=== PATIENT | female | born 1975 | race Caucasian/White ===

== ENCOUNTER → 2016-07-01 | Outpatient (CLI) | payer OTHER ==
--- NOTE | 2016-07-01 10:33 | CT ---
EXAMINATION TYPE: CT brain wo con DATE OF EXAM: 07/01/2016 10:18 AM COMPARISON: Prior CT brain April 23, 2006. HISTORY: New onset headache for one week. CT DLP: 1070 mGycm. Automated Exposure Control for Dose Reduction was Utilized. TECHNIQUE: CT scan of the head is performed without contrast. FINDINGS: There is no acute intracranial hemorrhage, mass effect, or midline shift identified. The ventricles and sulci are within normal limits in size. Francis-white matter differentiation is maintai maranda. The globes are intact and the visualized sinuses are clear. IMPRESSION: No acute intracranial hemorrhage or midline shift is seen. Unremarkable study.
== END | disposition home or self-care (01) ==
LOC: RADCTMAIN 09:26
PROVIDERS: ATTEND Family Medicine
DX: R51 Headache (principal)
CPT/HCPCS: 70450

== ENCOUNTER → 2016-10-16 | Outpatient (CLI) | payer OTHER ==
[2016-10-16 11:36] LABS: Basophils % (A) 1 %; CH 29.8; CHCM 32.4; Eosinophils # (A) 0.2 k/uL (0-0.7); Eosinophils % (A) 4 %; HCT 39.1 % (34.0-46.0); HDW 2.67; Luc # (Auto) 0.05; Luc % (Auto) 1; Lymphocytes # (A) 1.6 k/uL (1.0-4.8); Lymphocytes % (A) 30 %; MCH 30.8 pg (25.0-35.0); MCHC 33.3 g/dL (31.0-37.0); MCV 92.6 fL (80.0-100.0); Mean Platelet Volume 7.4; Monocytes # (A) 0.2 k/uL (0-1.0); Monocytes % (A) 4 %; Neutrophils # (A) 3.2 k/uL (1.3-7.7); Neutrophils % (A) 61 %; RBC 4.22 m/uL (3.80-5.40); RDW 13.7 % (11.5-15.5); WBC 5.3 k/uL (3.8-10.6); WBC (Perox) 5.46
[2016-10-16 12:23] LABS: ALT 39 U/L (9-52); AST 22 U/L (14-36); Alkaline Phosphatase 84 U/L (38-126); Anion Gap 11 mmol/L; Blood Urea Nitrogen 10 mg/dL (7-17); Calcium 9.7 mg/dL (8.4-10.2); Carbon Dioxide 24 mmol/L (22-30); Chloride 107 mmol/L (98-107); Creatine Kinase 47 U/L (30-135); Glucose 91 mg/dL (74-99); Non-African American GFR(MDRD) >60 (>60 ml/min/1.73 sqM); Potassium 4.3 mmol/L (3.5-5.1); Sodium 142 mmol/L (137-145); Total Bilirubin 0.2 mg/dL (0.2-1.3)
[2016-10-16 12:26] LABS: Rheumatoid Factor, Qnt <9 IU/mL (<12)
[2016-10-16 13:12] LABS: Vitamin B12 430 pg/mL (239-931)
[2016-10-16 13:39] LABS: Erythrocyte Sedimentation Rate 14 mm/hr (0-20)
[2016-10-16 18:20] LABS: ANA w/Reflex to Titer NEGATIVE (NEGATIVE)
[2016-10-17 08:18] LABS: Lyme IgG/IgM 0.1 Index; Lyme IgG/IgM Interp NEGATIVE (NEGATIVE)
== END ==
LOC: LABWHC1 11:18
PROVIDERS: ATTEND Psychiatry & Neurology Neurology
DX: M79.1 Myalgia (principal); G43.909 Migraine, unspecified, not intractable, without status migrainosus; R51 Headache; Z79.899 Other long term (current) drug therapy
CPT/HCPCS: 36415; 80053; 82306; 82550; 82607; 84439; 84443; 85025; 85652; 86038; 86431; 86618

== ENCOUNTER → 2018-02-11 | Outpatient (CLI) | payer BC ==
--- NOTE | 2018-02-11 14:24 | MM ---
Reason for exam: screening (asymptomatic). Baseline mammogram. History: Took hormonal contraceptives beginning at age 17. Physical Findings: Nurse did not find any significant physical abnormalities on exam. MG Screening Mammo w CAD Bilateral CC and MLO view(s) were taken. The breast tissue is heterogeneously dense. This may lower the sensitivity of mammography. Focal asymmetry right upper outer quadrant. These results were verbally communicated with the patient and result sheet given to the patient on 02/11/18. ASSESSMENT: Benign, BI-RAD 2 RECOMMENDATION: Routine screening mammogram of both breasts in 1 year.
== END | disposition home or self-care (01) ==
LOC: RADMAMWWP 13:28
PROVIDERS: ATTEND Family Medicine
DX: Z12.31 Encounter for screening mammogram for malignant neoplasm of breast (principal)
CPT/HCPCS: 77067

== ENCOUNTER 2019-01-25 12:07 | Emergency (ER) | payer BC ==
[2019-01-25 12:14] VITALS: BP 123/84; PULSE 82; RESP 18; TEMP 97.3
[2019-01-25] MEDS ORDERED: HYDROcodone/APAP 5-325MG 1 EACH TAB PO STA (12:30)
--- NOTE | 2019-01-25 12:36 | ED ---
Fall HPI - General Chief Complaint: Fall Stated Complaint: fall/rib pain Time Seen by Provider: 01/25/19 12:15 Source: patient, RN notes reviewed Mode of arrival: ambulatory Limitations: no limitations - History of Present Illness Initial Comments: This a 43-year-old female presents emergency Department chief complaint of left- sided rib pain. Patient states that she tripped and fell on Wednesday. Patient states she was walking her dog into her house states that she tripped on status. Patient landed forward on her left rib region. Patient was sent from PCPs office for x-rays. Patient states that she has pain with deep inspiration, movement, does feel short of breath secondary to pain no resting shortness of breath. No abdominal pain no head injury no loss conscious. - Related Data Home Medications Medication Instructions Recorded Confirmed Biotin 5 mg PO DAILY 01/25/19 01/25/19 Cholecalciferol (Vitamin D3) 2,000 unit PO DAILY 01/25/19 01/25/19 [Vitamin D3] Cider Vinegar [Apple Cider Vinegar] 600 mg PO DAILY 01/25/19 01/25/19 DULoxetine HCL [Cymbalta] 60 mg PO BID 01/25/19 01/25/19 Magnesium(Unknown Dose) 1 tab PO DAILY 01/25/19 01/25/19 Topiramate [Topamax] 25 mg PO BID 01/25/19 01/25/19 Vitamin B Complex 1 cap PO DAILY 01/25/19 01/25/19 Previous Rx's Medication Instructions Recorded Hydrocodone/Acetaminophen [[place] 1 tab PO Q6HR PRN #12 tab 01/25/19 5-325] Allergies Allergy/AdvReac Type Severity Reaction Status Date / Time No Known Allergies Allergy Verified 01/25/19 12:38 Review of Systems ROS Statement: Those systems with pertinent positive or pertinent negative responses have been documented in the HPI. ROS Other: All systems not noted in ROS Statement are negative. Past Medical History Past Medical History: Fibromyalgia History of Any Multi-Drug Resistant Organisms: None Reported Past Surgical History: Tonsillectomy, Tubal Ligation Additional Past Surgical History / Comment(s): uterine ablation Past Psychological History: No Psychological Hx Reported Smoking Status: Current every day smoker Past Alcohol Use History: Occasional Past Drug Use History: Marijuana General Exam Limitations: no limitations General appearance: alert, in no apparent distress Head exam: Present: atraumatic, normocephalic, normal inspection ENT exam: Present: normal exam, mucous membranes moist Neck exam: Present: normal inspection, full ROM. Absent: tenderness, meningismus, lymphadenopathy Respiratory exam: Present: normal lung sounds bilaterally, chest wall tenderness (Moderate left-sided rib tenderness anterior to lateral). Absent: respiratory distress, wheezes, rales, rhonchi, stridor, accessory muscle use Cardiovascular Exam: Present: regular rate, normal rhythm, normal heart sounds. Absent: systolic murmur, diastolic murmur, rubs, gallop, clicks GI/Abdominal exam: Present: soft, normal bowel sounds. Absent: distended, tenderness, guarding, rebound, rigid Back exam: Present: full ROM. Absent: tenderness, paraspinal tenderness, vertebral tenderness Neurological exam: Present: alert, oriented X3, CN II-XII intact, reflexes normal. Absent: motor sensory deficit Skin exam: Present: warm, dry, intact, normal color. Absent: rash Course Vital Signs 01/25/19 12:08 Temperature 97.3 F L Pulse Rate 82 Respiratory 18 Rate Blood Pressure 123/84 O2 Sat by Pulse 100 Oximetry Medical Decision Making - Medical Decision Making X-rays of the ribs and chest were obtained and reviewed no acute fracture or pneumothorax. Patient we discharged with rib contusion with pain medication return parameters discussed. Disposition Clinical Impression: Fall, Contusion of rib on left side Disposition: HOME SELF-CARE Condition: Stable Instructions (If sedation given, give patient instructions): Rib Contusion (ED) Additional Instructions: Please return to the Emergency Department if symptoms worsen or any other concerns. Prescriptions: Hydrocodone/Acetaminophen [[place] 5-325] 1 tab PO Q6HR PRN #12 tab PRN Reason: Pain Is patient prescribed a controlled substance at d/c from ED?: Yes When asked, does pt state using other controlled substances?: Yes If prescribed controlled substance>3 days was MAPS reviewed?: Prescribed <3 Days If opioid is for acute pain is fill amount 7 days or less?: Yes If Rx opioid, was Start Talking consent form obtained?: Yes Referrals: Nikko Hodge MD [Primary Care Provider] - 1-2 days Time of Disposition: 13:19
--- NOTE | 2019-01-25 13:03 | XR ---
EXAMINATION TYPE: XR ribs LT w pa chest xray DATE OF EXAM: 01/25/2019 COMPARISON: None HISTORY: Slipped on stairs striking left side on steps TECHNIQUE: Chest is examined in the frontal projection. Left ribs are examined in 2 views each. FINDINGS: Heart size is normal. Pulmonary vasculature is normal. No pneumothorax is evident. Left ribs appear intact. No displaced rib fractures are evident. Note is made of some mild scoliosis in the upper lumbar spine. IMPRESSION: 1. No acute left rib fractures. 2. Normal chest
== END 2019-01-25 13:25 | disposition home or self-care (01) ==
LOC: EC 12:07
DX: S20.212A Contusion of left front wall of thorax, initial encounter (principal); M79.7 Fibromyalgia; F17.200 Nicotine dependence, unspecified, uncomplicated; Z79.899 Other long term (current) drug therapy; W10.9XXA Fall (on) (from) unspecified stairs and steps, initial encounter; Y93.K1 Activity, walking an animal; Y92.009 Unspecified place in unspecified non-institutional (private) residence as the place of occurrence of the external cause
CPT/HCPCS: 99283

== ENCOUNTER 2020-03-13 07:46 | Day surgery (SDC) | payer BC ==
[2020-03-05 15:51] VITALS: BMI 25.4
[~2020-03-13 07:46] MED LIST: LACTATED RINGERS 1,000 ML IV SCH
[2020-03-13 08:10] VITALS: TEMP 97.8
[2020-03-13] MEDS ORDERED: LACTATED RINGERS 1,000 ML IV ONE (08:11)
[2020-03-13] MEDS ORDERED: LIDOCAINE 1% (10MG/ML) FOR IV START INTRADERMA ONE (08:12)
[2020-03-13] MEDS ORDERED: PROPOFOL 10 MG/ML 20 ML VIAL IV ONE (08:49)
--- NOTE | 2020-03-13 08:59 | P.GSHP ---
History of Present Illness H&P Date: 03/13/20 CHIEF COMPLAINT: Colon screen HISTORY OF PRESENT ILLNESS: The patient is a 44-year-old female who presents for colon screen. Lower endoscopy was offered for further evaluation and management. PAST MEDICAL HISTORY: Please see list. PAST SURGICAL HISTORY: Please see list. MEDICATIONS: Please see list. ALLERGIES: Please see list. SOCIAL HISTORY: No illicit drug use FAMILY HISTORY: No reports of Crohn disease or ulcerative colitis. REVIEW OF ORGAN SYSTEMS: CONSTITUTIONAL: No reports of fevers or chills. PHYSICAL EXAM: VITAL SIGNS: Stable GENERAL: Well-developed pleasant in no acute distress. HEENT: No scleral icterus. Extraocular movements grossly intact. Moist buccal mucosa. NECK: Supple without lymphadenopathy. CHEST: Unlabored respirations. Equal bilateral excursions. CARDIOVASCULAR: Regular rate and rhythm. Distal 2+ pulses. ABDOMEN: Soft, nontender, nondistended. MUSCULOSKELETAL: No clubbing, cyanosis, or edema. ASSESSMENT: 1. Colon screen. PLAN: 1. Recommend proceeding with a lower endoscopy Past Medical History Past Medical History: Fibromyalgia Additional Past Medical History / Comment(s): migraines. scarlet fever History of Any Multi-Drug Resistant Organisms: None Reported Past Surgical History: Tonsillectomy, Tubal Ligation, Uterine Ablation Additional Past Surgical History / Comment(s): uterine ablation Additional Past Anesthesia/Blood Transfusion Reaction / Comment(s): "anesthesia caused constipation" Smoking Status: Current every day smoker - Past Family History Father Family Medical History: Cancer Additional Family Medical History / Comment(s): colon cancer. pat. gpa-colon cancer Medications and Allergies Home Medications Medication Instructions Recorded Confirmed Type Biotin 10 mg PO DAILY 01/25/19 03/05/20 History Cholecalciferol (Vitamin D3) 2,000 unit PO DAILY 01/25/19 03/05/20 History [Vitamin D3] Cider Vinegar [Apple Cider Vinegar] 600 mg PO DAILY 01/25/19 03/05/20 History DULoxetine HCL [Cymbalta] 60 mg PO BID 01/25/19 03/05/20 History Topiramate [Topamax] 50 mg PO BID 01/25/19 03/05/20 History Butalb/Acetaminophen/Caffeine 1 cap PO DAILY PRN 03/05/20 03/05/20 History [Fioricet 50-300-40 mg Capsule] Diazepam [Valium] 10 mg PO DAILY PRN 03/05/20 03/05/20 History Allergies Allergy/AdvReac Type Severity Reaction Status Date / Time No Known Allergies Allergy Verified 03/05/20 15:41 Surgical - Exam Vital Signs Temp Pulse Resp BP Pulse Ox 97.8 F 73 18 140/78 100 03/13/20 08:09 03/13/20 08:09 03/13/20 08:09 03/13/20 08:09 03/13/20 08:09
--- NOTE | 2020-03-13 09:22 | P.PCN ---
Date of Procedure: 03/13/20 Description of Procedure: PREOPERATIVE DIAGNOSIS: Family history malignant colon polyps, father, grandfather Colonoscopy screening, high risk POSTOPERATIVE DIAGNOSIS: Tubular adenoma descending colon Internal hemorrhoids, grade 2 External hemorrhoids, grade 2 OPERATION: Colonoscopy to the ileocecal valve and appendiceal orifice, cecum Colonoscopy with multiple hot snare polypectomy SURGEON: Tanvi Nowak MD. ANESTHESIA: MAC. INDICATIONS: The patient is an 44-year-old female who presents family history of malignant colon polyps. His first colonoscopy. Benefits and risks were described and informed consent was obtained. DESCRIPTION OF PROCEDURE: The patient had undergone Suprep. She had been brought into the operating room and laid in the left lateral decubitus position. After adequate intravenous sedation, the rectum was examined with 2% lidocaine jelly. External hemorrhoids were encountered. The rectal tone was within normal limits. No lesions were palpated in the rectal vault. An Olympus colonoscope was advanced until the cecum, ileocecal valve and appendiceal orifice were clearly viewed. The prep was excellent. No sigmoid diverticulosis was encountered. Large colonic adenoma was found and removed with snare polypectomy. No evidence of focal colitis was found. Retroflexion of the scope demonstrated grade 2 internal hemorrhoids without active bleeding or inflammation. The colon was desufflated. The patient had tolerated the procedure well. Withdrawal time was over 6 minutes. FINDINGS: Aronchick preparation quality scale 1 (1-5) Internal hemorrhoids, grade 2 External hemorrhoids, grade 2 No arteriovenous malformations. No sigmoid diverticulosis Removal of 1 polyp: - Snare polypectomy 35 cm from the anal verge, 12 mm tubulovillous adenoma polyp No focal colitis. RECOMMENDATIONS: Repeat colonoscopy 3 years, 2022 Plan - Discharge Summary Discharge Rx Participant: No New Discharge Prescriptions: Continue Cider Vinegar [Apple Cider Vinegar] 600 mg PO DAILY Cholecalciferol (Vitamin D3) [Vitamin D3] 2,000 unit PO DAILY Topiramate [Topamax] 50 mg PO BID DULoxetine HCL [Cymbalta] 60 mg PO BID Biotin 10 mg PO DAILY Diazepam [Valium] 10 mg PO DAILY PRN PRN Reason: Anxiety Butalb/Acetaminophen/Caffeine [Fioricet 50-300-40 mg Capsule] 1 cap PO DAILY PRN PRN Reason: migraines Discharge Medication List Biotin 10 mg PO DAILY 01/25/19 [History] Cholecalciferol (Vitamin D3) [Vitamin D3] 2,000 unit PO DAILY 01/25/19 [History] Cider Vinegar [Apple Cider Vinegar] 600 mg PO DAILY 01/25/19 [History] DULoxetine HCL [Cymbalta] 60 mg PO BID 01/25/19 [History] Topiramate [Topamax] 50 mg PO BID 01/25/19 [History] Butalb/Acetaminophen/Caffeine [Fioricet 50-300-40 mg Capsule] 1 cap PO DAILY PRN 03/05/20 [History] Diazepam [Valium] 10 mg PO DAILY PRN 03/05/20 [History] Follow up Appointment(s)/Referral(s): Tanvi Nowak MD [STAFF PHYSICIAN] - As Needed Patient Instructions/Handouts: Colorectal Polyps (DC) Activity/Diet/Wound Care/Special Instructions: Repeat colonoscopy in 3 years, 2022 Discharge Disposition: HOME SELF-CARE
[2020-03-13 09:35] VITALS: BP 124/65; PULSE 60; RESP 16
--- NOTE | 2020-03-15 08:16 | CDI ---
Outpatient Documentation Clarification Form Date: 03/15/20 CDS/Adjunct Phlebotomy Instructor Name: Sheyla Anthony Phone: If any questions, call Mena Machuca Fiscal Assistant at [phone] Patient Name: La Escobar Admit Date: 03/13/20 Discharge Date: 03/13/20 ATTENTION: The [facility] Coding Staff appreciate your assistance in clarifying documentation. Please respond to the clarification below the line at the bottom and electronically sign. The [facility] Coding staff will review the response and follow-up if needed. Please note: Queries are made part of the Legal Health Record. If you have any questions, please contact the Fiscal Assistant. Dear Dr. Nowak, Please provide clarification as to the location of the colonic polyp. Please chose one of the options below for the correct location. Site of neoplasm - colon with rectum ascending cecum descending hepatic flexure sigmoid splenic flexure Thank you for your kind consideration. descending KM 03/16/20 0723 MTDD
== END 2020-03-13 09:49 | disposition home or self-care (01) ==
LOC: ORWHC2ENDO 07:46
PROVIDERS: ATTEND Surgery Plastic and Reconstructive Surgery
DX: Z12.11 Encounter for screening for malignant neoplasm of colon (principal); D12.4 Benign neoplasm of descending colon; K64.1 Second degree hemorrhoids; M79.7 Fibromyalgia; G43.909 Migraine, unspecified, not intractable, without status migrainosus; F17.200 Nicotine dependence, unspecified, uncomplicated; Z86.19 Personal history of other infectious and parasitic diseases; Z98.51 Tubal ligation status; Z98.890 Other specified postprocedural states; Z80.0 Family history of malignant neoplasm of digestive organs; Z79.891 Long term (current) use of opiate analgesic; Z79.899 Other long term (current) drug therapy
CPT/HCPCS: 81025; 88305; 45385; J2704

== ENCOUNTER 2021-10-31 13:53 | Emergency (ER) | payer BC ==
[2021-10-31] MEDS ORDERED: ONDANSETRON 4 MG/2 ML VIAL IVP STA (14:25)
[2021-10-31] MEDS ORDERED: SODIUM CHLORIDE 0.9% 2,000 ML IV STA (14:25)
[2021-10-31] MEDS ORDERED: KETOROLAC 15 MG/ML 1 ML VIAL IVP STA (14:25)
[2021-10-31 14:44] VITALS: RESP 18
[2021-10-31 14:54] LABS: Basophils % (A) 0 %; Eosinophils # (A) 0.3 k/uL (0-0.7); Eosinophils % (A) 4 %; HCT 43.9 % (34.0-46.0); HGB 14.6 gm/dL (11.4-16.0); Lymphocytes # (A) 2.4 k/uL (1.0-4.8); Lymphocytes % (A) 30 %; MCHC 33.2 g/dL (31.0-37.0); MCV 93.5 fL (80.0-100.0); Monocytes # (A) 0.3 k/uL (0-1.0); Monocytes % (A) 4 %; Neutrophils % (A) 61 %; Platelet Count 299 k/uL (150-450); RDW 13.4 % (11.5-15.5); WBC 8.2 k/uL (3.8-10.6)
[2021-10-31 15:08] LABS: ALT 44 U/L (4-34); AST 26 U/L (14-36); African American GFR (CKD) >90 (>60 ml/min/1.73 sqM); Alkaline Phosphatase 99 U/L (38-126); Amylase 59 U/L (30-110); Anion Gap 12 mmol/L; Blood Urea Nitrogen 15 mg/dL (7-17); Calcium 10.4 mg/dL (8.4-10.2); Carbon Dioxide 24 mmol/L (22-30); Chloride 99 mmol/L (98-107); Glucose 98 mg/dL (74-99); Lipase 85 U/L (23-300); Non-African American GFR(CKD) 90 (>60 ml/min/1.73 sqM); Potassium 4.2 mmol/L (3.5-5.1); Sodium 135 mmol/L (137-145); Total Bilirubin 0.2 mg/dL (0.2-1.3); Total Protein 7.9 g/dL (6.3-8.2)
--- NOTE | 2021-10-31 15:16 | CT ---
EXAMINATION TYPE: CT abdomen pelvis wo con CT DLP: 804.7 mGycm, Automated exposure control for dose reduction was used. DATE OF EXAM: 10/31/2021 3:01 PM COMPARISON: CT abdomen pelvis most recent from 08/31/2011 . CLINICAL INDICATION:Female, 46 years old with history of right flank pain TECHNIQUE: Standard CT of the abdomen and pelvis without IV or oral contrast. Lack of IV or oral co ntrast limits evaluation of solid and hollow organ viscera. Coronal and sagittal reformats were perfo rmed. FINDINGS: LOWER CHEST: Scarring and/or atelectasis demonstrated within the right middle lobe. ABDOMEN LIVER: Unremarkable noncontrast appearance. GALLBLADDER AND BILE DUCTS: Unremarkable noncontrast appearance. PANCREAS: Unremarkable noncontrast appearance. SPLEEN: Unremarkable noncontrast appearance. ADRENAL GLANDS: Unremarkable noncontrast appearance. KIDNEYS AND URETERS: No evidence of hydronephrosis or renal calculus. No ureteral calculi identified. No perinephric fat stranding or fluid collections. PELVIS BLADDER: Unremarkable REPRODUCTIVE: Unremarkable. ABDOMEN & PELVIS STOMACH AND BOWEL: Stomach and duodenum are unremarkable. No focal thickening or surrounding inflamma tory changes. The appendix is within normal limits. There are 2 metallic clips in the region of the r ectosigmoid junction. No evidence of bowel obstruction. PERITONEUM: No evidence of pneumoperitoneum or free fluid. VASCULATURE: No evidence of aortic aneurysm. MUSCULOSKELETAL: No acute osseous abnormalities LYMPH NODES: No gross evidence for lymphadenopathy. SOFT TISSUE/ABDOMINAL WALL: Unremarkable IMPRESSION: No acute abdominal/pelvic process.
--- NOTE | 2021-10-31 15:30 | ED ---
Abdominal Pain HPI - General Chief Complaint: Abdominal Pain Stated Complaint: Abd pain-Sent by PCP Time Seen by Provider: 10/31/21 14:15 Source: patient, RN notes reviewed Mode of arrival: ambulatory Limitations: no limitations - History of Present Illness Initial Comments: This a 46 year-old female presents emergency Department chief complaint right fl ank pain. Patient states she's had pain for last 5-6 days. No reported fever. Patient had slight nausea. Patient was seen at PCPs office sent over for further evaluation. Patient states that she was given a shot of antibiotics for kidney infection. Patient states that she has not dysuria mild lower abdominal pain. Denies Chest pain or shortness breath. - Related Data Home Medications Medication Instructions Recorded Confirmed Biotin 10 mg PO DAILY 01/25/19 03/05/20 Cholecalciferol (Vitamin D3) 2,000 unit PO DAILY 01/25/19 03/05/20 [Vitamin D3] Cider Vinegar [Apple Cider Vinegar] 600 mg PO DAILY 01/25/19 03/05/20 DULoxetine HCL [Cymbalta] 60 mg PO BID 01/25/19 03/05/20 Topiramate [Topamax] 50 mg PO BID 01/25/19 03/05/20 Butalb/Acetaminophen/Caffeine 1 cap PO DAILY PRN 03/05/20 03/05/20 [Fioricet 50-300-40 mg Capsule] diazePAM [Valium] 10 mg PO DAILY PRN 03/05/20 03/05/20 Previous Rx's Medication Instructions Recorded Cyclobenzaprine [Flexeril] 10 mg PO TID PRN #15 tab 10/31/21 Ibuprofen [Motrin] 600 mg PO Q8HR PRN #20 tab 10/31/21 Allergies Allergy/AdvReac Type Severity Reaction Status Date / Time No Known Allergies Allergy Verified 10/31/21 16:35 Review of Systems ROS Statement: Those systems with pertinent positive or pertinent negative responses have been documented in the HPI. ROS Other: All systems not noted in ROS Statement are negative. Past Medical History Past Medical History: Fibromyalgia Additional Past Medical History / Comment(s): migraines. scarlet fever History of Any Multi-Drug Resistant Organisms: None Reported Past Surgical History: Tonsillectomy, Tubal Ligation, Uterine Ablation Additional Past Surgical History / Comment(s): uterine ablation Additional Past Anesthesia/Blood Transfusion Reaction / Comment(s): "anesthesia caused constipation" Past Psychological History: Anxiety Smoking Status: Current every day smoker Past Alcohol Use History: Occasional Past Drug Use History: Marijuana - Past Family History Father Family Medical History: Cancer Additional Family Medical History / Comment(s): colon cancer. pat. gpa-colon cancer General Exam Limitations: no limitations General appearance: alert, in no apparent distress Head exam: Present: atraumatic, normocephalic, normal inspection Eye exam: Present: normal appearance, PERRL, EOMI. Absent: scleral icterus, conjunctival injection, periorbital swelling Respiratory exam: Present: normal lung sounds bilaterally. Absent: respiratory distress, wheezes, rales, rhonchi, stridor Cardiovascular Exam: Present: regular rate, normal rhythm, normal heart sounds. Absent: systolic murmur, diastolic murmur, rubs, gallop, clicks GI/Abdominal exam: Present: soft, tenderness, normal bowel sounds. Absent: distended, guarding, rebound, rigid Back exam: Present: CVA tenderness (R). Absent: CVA tenderness (L) Neurological exam: Present: alert Skin exam: Present: warm, dry, intact, normal color. Absent: rash Course Vital Signs 10/31/21 10/31/21 10/31/21 14:02 14:42 16:14 Temperature 97.6 F Pulse Rate 80 82 74 Respiratory 20 18 18 Rate Blood Pressure 134/79 120/74 115/62 O2 Sat by Pulse 96 97 99 Oximetry Medical Decision Making - Medical Decision Making Workup including labs, urinalysis, CT is unremarkable. This may be related to muscle skeletal pain. Patient does not have any signs of urinary tract infection. Patient discharged in stable condition return parameters were discussed. - Lab Data Result diagrams: 10/31/21 14:39 10/31/21 14:39 Lab Results 10/31/21 10/31/21 10/31/21 Range/Units 14:39 14:39 14:39 WBC 8.2 (3.8-10.6) k/uL RBC 4.70 (3.80-5.40) m/uL Hgb 14.6 (11.4-16.0) gm/dL Hct 43.9 (34.0-46.0) % MCV 93.5 (80.0-100.0) fL MCH 31.0 (25.0-35.0) pg MCHC 33.2 (31.0-37.0) g/dL RDW 13.4 (11.5-15.5) % Plt Count 299 (150-450) k/uL MPV 7.0 Neutrophils % 61 % Lymphocytes % 30 % Monocytes % 4 % Eosinophils % 4 % Basophils % 0 % Neutrophils # 5.0 (1.3-7.7) k/uL Lymphocytes # 2.4 (1.0-4.8) k/uL Monocytes # 0.3 (0-1.0) k/uL Eosinophils # 0.3 (0-0.7) k/uL Basophils # 0.0 (0-0.2) k/uL Sodium 135 L (137-145) mmol/L Potassium 4.2 (3.5-5.1) mmol/L Chloride 99 (98-107) mmol/L Carbon Dioxide 24 (22-30) mmol/L Anion Gap 12 mmol/L BUN 15 (7-17) mg/dL Creatinine 0.79 (0.52-1.04) mg/dL Est GFR (CKD-EPI)AfAm >90 (>60 ml/min/1.73 sqM) Est GFR (CKD-EPI)NonAf 90 (>60 ml/min/1.73 sqM) Glucose 98 (74-99) mg/dL Plasma Lactic Acid Berny 1.3 (0.7-2.0) mmol/L Calcium 10.4 H (8.4-10.2) mg/dL Total Bilirubin 0.2 (0.2-1.3) mg/dL AST 26 (14-36) U/L ALT 44 H (4-34) U/L Alkaline Phosphatase 99 (38-126) U/L Total Protein 7.9 (6.3-8.2) g/dL Albumin 5.0 (3.5-5.0) g/dL Amylase 59 (30-110) U/L Lipase 85 (23-300) U/L Urine Color Urine Appearance (Clear) Urine pH (5.0-8.0) Ur Specific [place] (1.001-1.035) Urine Protein (Negative) Urine Glucose (UA) (Negative) Urine Ketones (Negative) Urine Blood (Negative) Urine Nitrite (Negative) Urine Bilirubin (Negative) Urine Urobilinogen (<2.0) mg/dL Ur Leukocyte Esterase (Negative) Urine RBC (0-5) /hpf Urine WBC (0-5) /hpf Ur Squamous Epith Cells (0-4) /hpf 10/31/21 Range/Units 16:01 WBC (3.8-10.6) k/uL RBC (3.80-5.40) m/uL Hgb (11.4-16.0) gm/dL Hct (34.0-46.0) % MCV (80.0-100.0) fL MCH (25.0-35.0) pg MCHC (31.0-37.0) g/dL RDW (11.5-15.5) % Plt Count (150-450) k/uL MPV Neutrophils % % Lymphocytes % % Monocytes % % Eosinophils % % Basophils % % Neutrophils # (1.3-7.7) k/uL Lymphocytes # (1.0-4.8) k/uL Monocytes # (0-1.0) k/uL Eosinophils # (0-0.7) k/uL Basophils # (0-0.2) k/uL Sodium (137-145) mmol/L Potassium (3.5-5.1) mmol/L Chloride (98-107) mmol/L Carbon Dioxide (22-30) mmol/L Anion Gap mmol/L BUN (7-17) mg/dL Creatinine (0.52-1.04) mg/dL Est GFR (CKD-EPI)AfAm (>60 ml/min/1.73 sqM) Est GFR (CKD-EPI)NonAf (>60 ml/min/1.73 sqM) Glucose (74-99) mg/dL Plasma Lactic Acid Berny (0.7-2.0) mmol/L Calcium (8.4-10.2) mg/dL Total Bilirubin (0.2-1.3) mg/dL AST (14-36) U/L ALT (4-34) U/L Alkaline Phosphatase (38-126) U/L Total Protein (6.3-8.2) g/dL Albumin (3.5-5.0) g/dL Amylase (30-110) U/L Lipase (23-300) U/L Urine Color Light Yellow Urine Appearance Clear (Clear) Urine pH 6.0 (5.0-8.0) Ur Specific [place] 1.005 (1.001-1.035) Urine Protein Negative (Negative) Urine Glucose (UA) Negative (Negative) Urine Ketones Negative (Negative) Urine Blood Trace H (Negative) Urine Nitrite Negative (Negative) Urine Bilirubin Negative (Negative) Urine Urobilinogen <2.0 (<2.0) mg/dL Ur Leukocyte Esterase Small H (Negative) Urine RBC 2 (0-5) /hpf Urine WBC 2 (0-5) /hpf Ur Squamous Epith Cells 2 (0-4) /hpf Disposition Clinical Impression: Abdominal pain, Back pain Disposition: HOME SELF-CARE Condition: Stable Instructions (If sedation given, give patient instructions): Abdominal Pain (ED) Additional Instructions: Please return to the Emergency Department if symptoms worsen or any other concerns. Prescriptions: Cyclobenzaprine [Flexeril] 10 mg PO TID PRN #15 tab PRN Reason: Muscle Spasm Ibuprofen [Motrin] 600 mg PO Q8HR PRN #20 tab PRN Reason: Pain Is patient prescribed a controlled substance at d/c from ED?: No Referrals: Nikko Hodge MD [Primary Care Provider] - 1-2 days Time of Disposition: 16:36
[2021-10-31] MEDS ORDERED: HYDROmorphone 0.5 MG/0.5 ML SYRINGE IVP STA (16:14)
[2021-10-31 16:21] LABS: Appearance,Urine Clear (Clear); Bilirubin,Urine Negative (Negative); Blood,Urine Trace (Negative); Color,Urine Light Yellow; Glucose,Urine (UA) Negative (Negative); Ketones,Urine Negative (Negative); Leukocyte Esterase,Urine Small (Negative); Nitrite,Urine Negative (Negative); Protein,Urine Negative (Negative); RBC,Urine 2 /hpf (0-5); Specific Gravity,Urine 1.005 (1.001-1.035); Squamous Epithelial Cell,Urine 2 /hpf (0-4); Urobilinogen,Urine <2.0 mg/dL (<2.0); WBC,Urine 2 /hpf (0-5)
[2021-10-31] MEDS ORDERED: ACET/COD 300 MG/30 MG STARTER PACK 6 TAB BTL PO STA (16:35)
[2021-10-31 17:03] VITALS: BP 116/74; PULSE 76; TEMP 98.1
== END 2021-10-31 17:03 | disposition home or self-care (01) ==
LOC: EC 13:53
DX: R10.9 Unspecified abdominal pain (principal); M54.50 Low back pain, unspecified; F17.200 Nicotine dependence, unspecified, uncomplicated
CPT/HCPCS: 36415; 80053; 82150; 83605; 83690; 85025; 81001; 87040; 74176; 99284; 96374; 96375; 96361; J2405; J1885; J1170